=== PATIENT | female | born 1950 | race Caucasian/White ===

== ENCOUNTER 2019-11-14 17:21 | Emergency (ER) | payer MEDICARE, SELFPAY ==
[2019-11-14 17:30] VITALS: BP 176/94; PULSE 101; RESP 14; TEMP 36.8; O2SAT 98
--- NOTE | 2019-11-14 18:15 | ED.GENADULT ---
HPI - General Adult General Chief complaint: Skin/Abscess/Foreign Body Stated complaint: right arm spots Time Seen by Provider: 11/14/19 18:16 Source: patient and RN notes reviewed Mode of arrival: ambulatory Limitations: no limitations History of Present Illness HPI narrative: 69-year-old female presents with complaints of red, raised, blister areas, burning, and painful rash to right upper and lower dorsal arm and dorsal hand for the past 8 days. No treatment. Amber says it took her several days to realize the rash since she only baths several days a week. Denies new changes in personal hygiene products or laundry detergent. No new foods or medications. No swelling, bleeding, or drainage. Denies fever, chills, headaches, weakness, fatigue, myalgia, facial swelling, or tongue swelling. Denies chest pain or dyspnea. Tolerating po intake well. Some parts of this dictation were generated by voice recognition software and may contain typographical and/or grammatical inaccuracies. Related Data Allergies Allergy/AdvReac Type Severity Reaction Status Date / Time Penicillins Allergy Rash Verified 11/14/19 18:00 Review of Systems Review of Systems: Narrative: CONSTITUTIONAL: Denies fever, chills, sweats. EYES: Denies visual changes, redness, discharge. ENT: Denies rhinorrhea, congestion, sore throat, otalgia. CARDIOVASCULAR: Denies chest pain, palpitations, edema. RESPIRATORY: Denies dyspnea, wheezing, cough. GASTROINTESTINAL: Denies abdominal pain, nausea, vomiting, diarrhea. GENITOURINARY: Denies dysuria, hematuria, abnormal discharge. SKIN: Complains of red, raised, blister areas, burning, and painful rash to right upper and lower dorsal arm and dorsal hand. Denies drainage. MUSCULOSKELETAL: Denies acute back pain, joint pain, or myalgia. NEUROLOGIC: Denies numbness, or focal weakness. PSYCHIATRIC: Denies anxiety or depression. All systems reviewed & are unremarkable except as noted in HPI and below. REPLACED BY [facility] Past Medical History Medical History (Updated 11/15/19 @ 00:00 by Lea Lewis) Vaginal fibroids Surgical History Surgical History (Updated 11/14/19 @ 18:33 by GISEL Farrell) No significant past surgical history Family History Family History (Updated 11/21/19 @ 12:02 by GISEL Farrell) Mother No significant family history Alive and well Father No problems noted. Social History Social History (Updated 11/14/19 @ 18:34 by GISEL Farrell) Smoking status: Never smoker Alcohol intake: never Substance use: never Living arrangements: with family Occupation/Education: occupation Gender identity (if verbalized by the patient): Female Comments At time of signature, agree with nurse past medical, surgical, social, and family history. There is no relevant family history pertinent to the presenting complaint. Exam Narrative: Exam Narrative: GENERAL: This is a well-nourished, well-developed patient, in no apparent distress. Talking in full sentences without deficit and ambulate with steady gait without dyspnea. HEAD: normocephalic, atraumatic. EYES: PERRL. Sclera clear/white. Vision is grossly intact. THROAT: Mucous membranes moist, posterior pharynx clear. NECK: Neck supple, non-tender without lymphadenopathy, masses or thyromegaly. CARDIOVASCULAR: Regular rate and rhythm without murmurs, gallops, or rubs. RESPIRATORY: Clear to auscultation. Breath sounds equal bilaterally. No wheezes, rales, or rhonchi. GASTROINTESTINAL: Abdomen soft, non-tender, nondistended. Bowel sounds are active. No hepato-splenomegaly, or palpable masses. No guarding. SKIN: warm with good texture and turgor. (RT dermatome). Patches of erythema with grouped herpetiform vesicles along the right upper and lower arm and dorsal hand side in various size with minimal induration. No purulent drainage. No stiff no cystic or abscess formation. Consistent with Shingles/Herpes zoster. NEURO:
== END 2019-11-14 18:31 | disposition home or self-care (01) ==
PROVIDERS: Emergency Provider Nurse Practitioner Family
DX: B02.9 Zoster without complications (principal)
CPT/HCPCS: 99203; G0463